=== PATIENT | male | born 2000 | race Caucasian/White ===

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

== ENCOUNTER 2019-12-07 09:08 | Emergency (ER) | payer BC, OTHER ==
[2019-12-07 09:32] VITALS: BP 139/72; PULSE 66
[2019-12-07] MEDS ORDERED: Ketorolac 60 MG/2 ML SDV IM ONE (09:46)
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
--- NOTE | 2019-12-08 10:23 | CR ---
Hand Comp Min 3V Lt CLINICAL HISTORY: Injury FINDINGS: There is a fracture through the base of the fifth and fourth metacarpals with some fourth carpal metacarpal dorsal subluxation. IMPRESSION: Comminuted fractures through the base of the fourth and fifth metacarpals with dorsal carpometacarpal subluxation
== END 2019-12-07 11:15 | disposition home or self-care (01) ==
LOC: JP.ED 09:08
DX: S62.315A Displaced fracture of base of fourth metacarpal bone, left hand, initial encounter for closed fracture (principal); J45.909 Unspecified asthma, uncomplicated; F17.210 Nicotine dependence, cigarettes, uncomplicated; Z88.1 Allergy status to other antibiotic agents; V29.9XXA Motorcycle rider (driver) (passenger) injured in unspecified traffic accident, initial encounter
CPT/HCPCS: 29125; 73130; 96372; 99283; J1885

== ENCOUNTER 2020-01-14 18:44 | Emergency (ER) | payer BC ==
[2020-01-14 19:16] VITALS: BP 136/99; PULSE 89
[2020-01-14] MEDS ORDERED: fentaNYL 100 MCG/2 ML SDV IM ONE (19:17)
[2020-01-14] MEDS ORDERED: Bacitracin Oint 1 GM U/D Packet TOP ONE (19:18)
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
[2020-01-14] MEDS ORDERED: HYDROmorphone 2 MG Tab PO ONE (20:00)
== END 2020-01-14 20:11 | disposition home or self-care (01) ==
LOC: JP.ED 18:44
DX: T23.202A Burn of second degree of left hand, unspecified site, initial encounter (principal); T23.201A Burn of second degree of right hand, unspecified site, initial encounter; J45.909 Unspecified asthma, uncomplicated; F17.210 Nicotine dependence, cigarettes, uncomplicated; Z88.1 Allergy status to other antibiotic agents; X08.8XXA Exposure to other specified smoke, fire and flames, initial encounter; Y92.009 Unspecified place in unspecified non-institutional (private) residence as the place of occurrence of the external cause
CPT/HCPCS: 96372; 99283; A9270; J3010

== ENCOUNTER 2024-06-08 17:10 | Emergency (ER) | payer BC ==
[2024-06-08] MEDS: Sodium Chloride 0.9% 80 ML IV SCH (17:55)
[2024-06-08] MEDS: Sodium Chloride 0.9% 10 ML Syringe FLUSH ONE (17:55)
[2024-06-08] MEDS: Iopamidol 612 MG/ML 100 ML Bottle IV PRN (17:55)
[2024-06-08] MEDS: Lidocaine 1% with EPINEPHrine 1:100,000 20 ML MDV INJECT ONE (18:28)
[2024-06-08] MEDS: Bacitracin Oint 1 GM U/D Packet TOP ONE (18:29)
[2024-06-08 18:54] VITALS: BP 150/74; PULSE 98
== END 2024-06-08 18:56 | disposition home or self-care (01) ==
LOC: JP.ED 17:10
DX: S71.012A Laceration without foreign body, left hip, initial encounter (principal); Z88.1 Allergy status to other antibiotic agents; W26.0XXA Contact with knife, initial encounter; Y93.89 Activity, other specified
CPT/HCPCS: 12001; 36415; 74177; 80307; 85018; 99284; J2004; Q9967